=== PATIENT | male | born 1995 | race Caucasian/White ===

== ENCOUNTER 2016-10-05 15:40 | Emergency (ER) | payer BC ==
[~2016-10-05 15:40] MED LIST: ADVIL200 M1 PO; ADVIL200 MG PO; MOTRIN600 MG PO; NORCO 7.5/325 T1 TAB PO; ROBAXIN750 MG/TAB PO; TYLENOL325 MG PO; ZOFRAN ODT4 MG/UDTAB PO; ZOFRAN4 MG PO
[2016-10-05] MEDS ORDERED: EYE ITCH RELIEF EACH EYE (15:48)
[2016-10-05] MEDS ORDERED: IBUPROFEN600 M1 PO (16:01)
== END 2016-10-05 16:12 ==
LOC: EDMED 15:40
DX: M26.602 Left temporomandibular joint disorder, unspecified (principal)